=== PATIENT | male | born 1965 | race Caucasian/White ===

== ENCOUNTER 2020-12-11 19:26 | Emergency (ER) | payer OTHER ==
[2020-12-11 20:24] LABS: HEMOGLOBIN 13.2 gm/dl (14.0-17.5); RED BLOOD COUNT 4.35 M/UL (4.20-5.50); WHITE BLOOD COUNT 9.5 K/UL (4.5-11.0)
[2020-12-11 20:40] LABS: BUN/CREATININE RATIO 14 (0-10)
[2020-12-11] MEDS ORDERED: KEFLEX750 MG PO (21:33)
[2020-12-11] MEDS ORDERED: BACTRIM DS TAB1 EACH PO (21:33)
[2020-12-11] MEDS ORDERED: PERCOCET 5-3251 EACH PO (21:44)
== END 2020-12-11 22:00 | disposition home or self-care (01) ==
LOC: ER1 19:26
PROVIDERS: Family Medicine
DX: M19.041 Primary osteoarthritis, right hand (principal); F17.210 Nicotine dependence, cigarettes, uncomplicated; J44.9 Chronic obstructive pulmonary disease, unspecified
CPT/HCPCS: 73201; 80053; 85007; 85027; 85652; 86140; 87070; 87205; 99284; Q9967

== ENCOUNTER 2020-12-25 07:30 | Inpatient (IN) | payer MEDICARE, OTHER ==
[~2020-12-25] VITALS: Ht 188 cm; Wt 98.9 kg
[~2020-12-25 07:30] MED LIST: BACTRIM DS TAB1 EACH PO; KEFLEX750 MG PO; PERCOCET 5-3251 EACH PO
[2020-12-25 08:29] LABS: HEMOGLOBIN 13.9 gm/dl (14.0-17.5); RED BLOOD COUNT 4.65 M/UL (4.20-5.50); WHITE BLOOD COUNT 9.3 K/UL (4.5-11.0)
[2020-12-25 08:38] LABS: BUN/CREATININE RATIO 19 (0-10)
[2020-12-25] MEDS ORDERED: ENDOCET 7.5-321 EACH PO (12:17)
[2020-12-26 07:29] LABS: BUN/CREATININE RATIO 16 (0-10)
[2020-12-27 06:25] LABS: BUN/CREATININE RATIO 11 (0-10)
--- NOTE | 2020-12-27 11:11 | NUR ---
Patient been absent from the floor from approximately 8:30 until past 11am. Call was made to his primary home phone number, which turned out to be his private cell-phone, and he stated that he was visiting with his family member and was going to the cafeteria.
[2020-12-28 06:33] LABS: BUN/CREATININE RATIO 17 (0-10)
== END 2020-12-28 18:10 | disposition home health service (06) | DRG 982 ==
LOC: OR 07:30 → M/S 13:05
PROVIDERS: ADMIT Orthopaedic Surgery
PROC: 02HV33Z Insertion of Infusion Device into Superior Vena Cava, Percutaneous Approach (ICD-10-PCS; 2020-12-25)
PROC: B548ZZA Ultrasonography of Superior Vena Cava, Guidance (ICD-10-PCS; 2020-12-25)
PROC: 0X6J0ZC Detachment at Right Hand, Partial 3rd Ray, Open Approach (ICD-10-PCS; principal; 2020-12-25 09:00)
DX: E11.69 Type 2 diabetes mellitus with other specified complication (principal); M86.8X4 Other osteomyelitis, hand; M00.841 Arthritis due to other bacteria, right hand; Z20.822 Contact with and (suspected) exposure to COVID-19; F17.210 Nicotine dependence, cigarettes, uncomplicated; E78.5 Hyperlipidemia, unspecified; Z87.442 Personal history of urinary calculi; Z79.4 Long term (current) use of insulin; Z86.19 Personal history of other infectious and parasitic diseases
CPT/HCPCS: 36415; 71045; 73130; 76000; 80048; 80202; 82962; 83036; 85025; 85652; 86140; 87070; 87075; 87077; 87205; 93005; C1751; J1100; J1170; J2001; J2250; J2270; J2405; J2550; J2704; J2795; J3010; J3370; J7030; J7050; J7070; J7120

== ENCOUNTER 2021-01-02 14:53 | Inpatient (IN) | payer MEDICARE, OTHER ==
[~2021-01-02] VITALS: Ht 188 cm; Wt 100.2 kg
[~2021-01-02 14:53] MED LIST changes: +ENDOCET 7.5-321 EACH PO
[2021-01-02 15:52] LABS: HEMOGLOBIN 11.5 gm/dl (14.0-17.5); RED BLOOD COUNT 3.82 M/UL (4.20-5.50); WHITE BLOOD COUNT 9.8 K/UL (4.5-11.0)
[2021-01-02 16:11] LABS: BUN/CREATININE RATIO 17 (0-10)
[2021-01-03 07:26] LABS: HEMOGLOBIN 11.2 gm/dl (14.0-17.5); RED BLOOD COUNT 3.87 M/UL (4.20-5.50); WHITE BLOOD COUNT 9.7 K/UL (4.5-11.0)
[2021-01-03 07:43] LABS: BUN/CREATININE RATIO 14 (0-10)
[2021-01-04 08:09] LABS: HEMOGLOBIN 11.8 gm/dl (14.0-17.5); RED BLOOD COUNT 3.96 M/UL (4.20-5.50); WHITE BLOOD COUNT 9.8 K/UL (4.5-11.0)
[2021-01-04] MEDS ORDERED: ZYVOX600 MG PO (15:18)
== END 2021-01-04 16:12 | disposition home health service (06) | DRG 315 ==
LOC: ER1 14:53 → CDU 18:02 → M/S 18:02 → ER1 18:25 → M/S 19:19
PROVIDERS: Emergency Medicine; Nurse Practitioner; ADMIT Internal Medicine
DX: T82.898A Other specified complication of vascular prosthetic devices, implants and grafts, initial encounter (principal); L03.113 Cellulitis of right upper limb; Z20.822 Contact with and (suspected) exposure to COVID-19; M86.8X4 Other osteomyelitis, hand; F17.210 Nicotine dependence, cigarettes, uncomplicated; Y83.8 Other surgical procedures as the cause of abnormal reaction of the patient, or of later complication, without mention of misadventure at the time of the procedure; E11.69 Type 2 diabetes mellitus with other specified complication; Z79.4 Long term (current) use of insulin; Z89.029 Acquired absence of unspecified finger(s)
CPT/HCPCS: 36415; 71045; 80048; 80053; 80202; 81001; 82550; 82962; 83540; 83550; 83605; 83735; 83880; 84100; 85025; 85027; 85610; 85652; 86140; 87040; 99284; J2270; J2543; J3370; J7030; J7050; J7070; U0002